=== PATIENT | female | born 1970 | race African-American/Black ===

== ENCOUNTER 2017-11-08 11:14 | Emergency (ER) | payer OTHER ==
[~2017-11-08] VITALS: Ht 160 cm; Wt 59.0 kg
[2017-11-08] MEDS ORDERED: IBUPROFEN 600MG TABLET PO ONE (11:45)
[2017-11-08 12:43] VITALS: BP 125/71
== END 2017-11-08 12:45 | disposition home or self-care (01) ==
LOC: ER 12:19
DX: M65.4 Radial styloid tenosynovitis [de Quervain] (principal); I10 Essential (primary) hypertension; Z88.0 Allergy status to penicillin; Z88.2 Allergy status to sulfonamides
CPT/HCPCS: 73130; 99284

== ENCOUNTER 2018-02-19 14:36 | Emergency (ER) | payer OTHER ==
[~2018-02-19] VITALS: Ht 165.1 cm; Wt 56.0 kg
[2018-02-19 15:35] LABS: CLARITY URINE CLEAR (CLEAR); COLOR URINE YELLOW (YELLOW); KETONES URINE NEGATIVE (NEGATIVE); LEUKOCYTE ESTERASE URINE NEGATIVE (NEGATIVE); NITRITE URINE NEGATIVE (NEGATIVE); OCCULT BLOOD URINE TRACE (NEGATIVE); PROTEIN URINE NEGATIVE (NEGATIVE); SPECIFIC GRAVITY URINE 1.012 (1.005-1.030)
[2018-02-19 17:00] VITALS: BP 120/56
[2018-02-19] MEDS ORDERED: ACETAMINOPHEN 500MG TABLET PO ONE (17:15)
== END 2018-02-19 17:25 | disposition home or self-care (01) ==
LOC: ER 14:36
DX: H60.92 Unspecified otitis externa, left ear (principal); Z88.0 Allergy status to penicillin; Z88.2 Allergy status to sulfonamides; Z93.0 Tracheostomy status
CPT/HCPCS: 81003; 81025; 99283

== ENCOUNTER 2019-02-02 10:54 | Emergency (ER) | payer OTHER ==
[~2019-02-02] VITALS: Ht 160 cm; Wt 59.0 kg
[2019-02-02] MEDS ORDERED: IBUPROFEN 600MG TABLET PO ONE (11:45)
[2019-02-02 12:08] VITALS: BP 128/64
== END 2019-02-02 15:05 | disposition home or self-care (01) ==
LOC: ER 10:54
DX: S76.012A Strain of muscle, fascia and tendon of left hip, initial encounter (principal); Z88.0 Allergy status to penicillin; Z88.2 Allergy status to sulfonamides; Z93.0 Tracheostomy status; X58.XXXA Exposure to other specified factors, initial encounter; Y93.B9 Activity, other involving muscle strengthening exercises; Y92.89 Other specified places as the place of occurrence of the external cause
CPT/HCPCS: 81025; 99283

== ENCOUNTER 2020-01-12 09:52 | Emergency (ER) | payer OTHER ==
[~2020-01-12] VITALS: Ht 160 cm; Wt 58.0 kg
[2020-01-12 10:01] VITALS: BP 145/71
[2020-01-12] MEDS ORDERED: KETOROLAC 30MG/ML VIAL IM ONE (10:30)
== END 2020-01-12 10:54 | disposition home or self-care (01) ==
LOC: ER 09:52
DX: S86.811A Strain of other muscle(s) and tendon(s) at lower leg level, right leg, initial encounter (principal); X58.XXXA Exposure to other specified factors, initial encounter; Y93.89 Activity, other specified; Y92.89 Other specified places as the place of occurrence of the external cause; Y99.8 Other external cause status; Z88.0 Allergy status to penicillin; Z88.2 Allergy status to sulfonamides; Z93.0 Tracheostomy status
CPT/HCPCS: 96372; 99283; J1885

== ENCOUNTER 2021-05-04 14:13 | Emergency (ER) | payer MEDICAID, OTHER ==
[~2021-05-04] VITALS: Ht 160 cm; Wt 59.0 kg
[2021-05-04 15:07] LABS: BASOPHILS % 0.9 % (0.0-2.0); EOSINOPHILS % 1.2 % (0.0-5.0); HEMATOCRIT. 38.3 % (36.0-48.0); HEMOGLOBIN. 12.9 g/dL (12.0-16.0); LYMPHOCYTES % 35.1 % (20.0-50.0); MEAN CORPUSCULAR HEMOGLOBIN 29.2 pg (28.0-32.0); MEAN CORPUSCULAR VOLUME 86.4 fL (81.0-99.0); MEAN PLATELET VOLUME 8.9 fl (7.4-10.4); MONOCYTES % 9.2 % (2.0-8.0); NEUTROPHILS % 53.6 % (40.0-76.0); PLATELET 314 x1000/uL (130-400); RED BLOOD CELL COUNT 4.43 mill/uL (4.2-5.4); RED CELL DISTRIBUTION WIDTH 14.6 % (11.6-14.6)
[2021-05-04 15:14] LABS: CHLORIDE 110 mEq/L (98-107)
[2021-05-04 17:51] VITALS: BP 145/84
== END 2021-05-04 17:54 | disposition home or self-care (01) ==
LOC: ER 14:13
DX: R07.89 Other chest pain (principal); Z88.0 Allergy status to penicillin; Z88.2 Allergy status to sulfonamides
CPT/HCPCS: 36415; 71045; 80053; 83880; 84484; 85025; 85379; 93005; 99285

== ENCOUNTER 2023-01-15 13:23 | Emergency (ER) | payer MEDICAID, OTHER ==
[~2023-01-15] VITALS: Ht 160 cm; Wt 59.0 kg
[2023-01-15 14:02] VITALS: BP 125/60; PULSE 83; RESP 18; TEMP 97.9; O2SAT 100
[2023-01-15] MEDS ORDERED: PREDNISONE 20MG TABLET PO ONE (15:00)
[2023-01-15] MEDS ORDERED: HYDR453.3 TP (15:05)
[2023-01-15] MEDS ORDERED: DIPH25TA24 PO (15:05)
== END 2023-01-15 15:35 | disposition home or self-care (01) ==
LOC: ER 13:23
DX: T78.40XA Allergy, unspecified, initial encounter (principal); Z88.0 Allergy status to penicillin; Z88.2 Allergy status to sulfonamides; X58.XXXA Exposure to other specified factors, initial encounter
CPT/HCPCS: 99281

== ENCOUNTER 2024-05-22 12:45 | Emergency (ER) | payer OTHER ==
[~2024-05-22] VITALS: Ht 154.9 cm; Wt 60.0 kg
[~2024-05-22 12:45] MED LIST: DIPH25TA24 PO; DOXY100C5 MT; FLUT16SP15 BOTHNSTRLS; HYDR453.3 TP
[2024-05-22 13:15] VITALS: O2SAT 100
[2024-05-22 14:17] LABS: CLARITY URINE CLEAR (CLEAR); COLOR URINE YELLOW (YELLOW); GLUCOSE URINE NEGATIVE (NEGATIVE); KETONES URINE NEGATIVE (NEGATIVE); LEUKOCYTE ESTERASE URINE NEGATIVE (NEGATIVE); NITRITE URINE NEGATIVE (NEGATIVE); OCCULT BLOOD URINE TRACE (NEGATIVE); PH URINE 5.5 (4.5-8.0); PROTEIN URINE NEGATIVE (NEGATIVE); SPECIFIC GRAVITY URINE 1.018 (1.005-1.030); UROBILINOGEN URINE 0.2 E.U./dL (0.2-1.0)
[2024-05-22] MEDS ORDERED: NITR100C MT (14:32)
[2024-05-22 14:39] LABS: BACTERIA URINE NONE SEEN; SQUAMOUS EPITHELIAL CELL URINE 1+ /lpf (RARE/1+); WBC URINE 0-2 /hpf (0-2); YEAST URINE NONE SEEN
[2024-05-22 15:32] VITALS: BP 128/77; PULSE 88; RESP 16; TEMP 37.00296; O2SAT 99
== END 2024-05-22 15:33 | disposition home or self-care (01) ==
LOC: ER 12:55
DX: N39.0 Urinary tract infection, site not specified (principal); I10 Essential (primary) hypertension; Z88.0 Allergy status to penicillin; Z88.1 Allergy status to other antibiotic agents; Z88.2 Allergy status to sulfonamides
CPT/HCPCS: 81003; 99283

== ENCOUNTER 2024-07-19 11:50 | Emergency (ER) | payer OTHER ==
[~2024-07-19] VITALS: Ht 160 cm; Wt 58.9 kg
[~2024-07-19 11:50] MED LIST changes: +NITR100C MT
[2024-07-19 11:56] VITALS: O2SAT 100
[2024-07-19] MEDS ORDERED: TOPUD MT (15:13)
[2024-07-19] MEDS ORDERED: CYCL10TA21 MT (15:13)
[2024-07-19] MEDS ORDERED: NAPR-679 MT (15:13)
[2024-07-19 16:41] VITALS: BP 118/60; PULSE 82; RESP 16; TEMP 36.78072; O2SAT 100
== END 2024-07-19 16:42 | disposition home or self-care (01) ==
LOC: ER 11:50
DX: S16.1XXA Strain of muscle, fascia and tendon at neck level, initial encounter (principal); I10 Essential (primary) hypertension; Z88.2 Allergy status to sulfonamides; Z88.0 Allergy status to penicillin; Z88.1 Allergy status to other antibiotic agents; Z79.899 Other long term (current) drug therapy; V49.9XXA Car occupant (driver) (passenger) injured in unspecified traffic accident, initial encounter; Y93.89 Activity, other specified; Y92.89 Other specified places as the place of occurrence of the external cause; Y99.8 Other external cause status
CPT/HCPCS: 73130; 99283